=== PATIENT | female | born 1990 | race Caucasian/White ===

== ENCOUNTER 2017-02-03 14:44 | Emergency (ER) | payer MEDICARE ==
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
[2017-02-03 15:11] LABS: BASOPHIL % 0.2 %; EOSINOPHIL % 0.1 %; HEMATOCRIT 40.8 % (33.0-46.0); HEMOGLOBIN 13.9 g/dL (11.0-15.0); IMMATURE GRANULOCYTE % 0.3 %; LYMPHOCYTE # 1.7 K/uL (0.8-4.0); LYMPHOCYTE % 15.5 %; MCH 30.9 pg (27.0-34.0); MCHC 34.1 gm/dL (32.0-36.5); MCV 90.7 fl (83.0-98.0); MONOCYTE # 0.4 K/uL (0.0-1.0); MONOCYTE % 3.4 %; MPV 10.2 fl (9.4-12.4); NEUTROPHIL # (ANC) 8.9 K/uL (1.8-7.8); NEUTROPHIL % 80.5 %; NRBC % 0 /100WBC (0-0.00); PLATELET COUNT 293 K/uL (150-450); RDW-CV 12.4 % (11.9-14.6); WBC 11.1 K/uL (4.0-11.0)
[2017-02-03 15:29] LABS: ALBUMIN 4.3 gm/dL (3.5-5.0); ALK PHOS 53 IU/L (33-138); ALT 25 IU/L (12-78); ANION GAP 12.2 (10.0-19.0); AST 13 IU/L (10-40); BLOOD UREA NITROGEN 7 mg/dL (6-24); CALCIUM 9.4 mg/dL (8.5-10.5); CHLORIDE 106 mMol/L (96-110); CO2 27 mMol/L (22-32); CREATININE 0.8 mg/dL (0.5-1.1); ESTIMATED GFR (MDRD EQUATION) > 60; POTASSIUM 4.2 mMol/L (3.7-5.1); SODIUM 141 mMol/L (135-145); TOTAL BILIRUBIN 0.3 mg/dL (0.0-1.5); TOTAL PROTEIN 7.7 g/dL (6.0-8.4)
== END 2017-02-03 18:26 | disposition disaster alternative care site (69) ==
LOC: GMED 14:44
PROVIDERS: Physician Assistant Medical
DX: F41.9 Anxiety disorder, unspecified (principal); F43.10 Post-traumatic stress disorder, unspecified

== ENCOUNTER → 2017-02-03 | Outpatient (CLI) | payer MEDICARE | END | disposition disaster alternative care site (69) | LOC: GAMB 14:20 | DX: R41.82 Altered mental status, unspecified (principal); F32.9 Major depressive disorder, single episode, unspecified; G40.409 Other generalized epilepsy and epileptic syndromes, not intractable, without status epilepticus; Z79.899 Other long term (current) drug therapy; Z88.0 Allergy status to penicillin; Z88.6 Allergy status to analgesic agent | CPT/HCPCS: A0425; A0429 ==